=== PATIENT | female | born 2000 | race Caucasian/White ===

== ENCOUNTER 2021-08-30 13:53 | Inpatient (IN) ==
[2021-08-30 14:52] LABS: Basophils % 0.3 %; Eosinophils # 0.3 K/mcL (0.0-0.6); Eosinophils % 2.3 %; Hematocrit 43.1 % (35.3-44.9); Hemoglobin 14.5 g/dL (11.5-15.4); Immature Granulocytes % 0.2 % (0-4); Lymphocytes % 32.9 %; Mean Corpuscular HGB Conc 33.6 g/dL (31.6-35.5); Mean Corpuscular Hemoglobin 28.9 pg (28.0-33.3); Mean Platelet Volume 10.9 fL (9.4-12.4); Monocytes # 0.8 K/mcL (0.0-1.3); Monocytes % 6.4 %; Platelet Count 351 K/mcL (140-400); Red Blood Count 5.01 M/mcL (3.82-4.97); Red Cell Distribution Width 12.9 % (11.5-14.5); Segmented Neutrophils % 57.9 %
[2021-08-30 14:53] LABS: Bilirubin,Urine Negative (Negative); Blood,Urine Trace (Negative); Clarity,Urine Clear (Clear); Color,Urine Light-Yellow (Yellow); Glucose,Urine (UA) Normal (Normal); Ketones,Urine Negative (Negative); Leukocyte Esterase,Urine Negative (Negative); Mucus,Urine Few per lpf (None-Few); Nitrite,Urine Negative (Negative); PH,Urine 6.5 pH Units (5.0-8.0); Protein,Urine Negative (Neg-Trace); RBC,Urine 0-3 per hpf (0-3); Squamous Epithelial Cell,Urine Few per hpf (None-Few); Urobilinogen,Urine Normal (Normal); WBC,Urine 0-3 per hpf (0-3)
[2021-08-30 15:10] LABS: Acetaminophen < 10 mcg/mL (10-20); BUN/Creatinine Ratio 12 (6-26); Blood Urea Nitrogen 8 mg/dL (6-20); Calcium 9.8 mg/dL (8.6-10.3); Carbon Dioxide 25 mEq/L (23-29); Chloride 106 mEq/L (98-107); Chol/HDL Ratio 4.1 (0-4.9); Cholesterol 189 mg/dL (< 200); Ethanol < 10 mg/dL (Less than 10); Glucose 84 mg/dL (70-105); HDL Cholesterol 46 mg/dL (40-59); LDL Cholesterol,Calculated 108 mg/dL (< 100); Osmolality,Calculated 284 (280-300); Potassium 3.3 mEq/L (3.5-5.1); Salicylate < 2.5 mg/dL (15.0-30.0); Sodium 138 mEq/L (136-145); Triglycerides 176 mg/dL (< 150); eGFR For African Americans > 60 (> 60); eGFR For Non-African Americans > 60 (> 60)
[2021-08-30 15:50] LABS: Estimated Average Glucose 105 mg/dl; Hemoglobin A1C 5.3 %
[2021-08-30 16:08] LABS: Amphetamine Screen,Urine Negative ng/mL (Cutoff=1000); Barbiturate Screen,Urine Negative ng/mL (Cutoff=200); Benzodiazepines Screen,Urine Negative ng/mL (Cutoff=200); Cannabinoid Screen,Urine Positive ng/mL (Cutoff = 50); Cocaine Screen,Urine Negative ng/mL (Cutoff= 300); Opiate Screen,Urine Negative ng/mL (Cutoff=300); Phencyclidine Screen,Urine Negative ng/mL (Cutoff=25)
[2021-08-30 18:40] LABS: Influenza A PCR Negative (Negative); Influenza B PCR Negative (Negative); Resp. Syncytial Virus PCR Negative (Negative); SARS-CoV-2 by PCR (In House) Negative (Negative)
[2021-08-30] MEDS ORDERED: Ibuprofen 400 MG TABLET PO PRN (19:01)
[2021-08-30] MEDS ORDERED: Haloperidol Lactate 5 MG/ML VIAL IM PRN (19:01)
[2021-08-30] MEDS ORDERED: haloperidoL 5 MG TABLET PO PRN (19:01)
[2021-08-30] MEDS ORDERED: *HR* LORazepam 2 MG/ML VIAL IM PRN (19:01)
[2021-08-30] MEDS ORDERED: *HR* LORazepam 1 MG TABLET PO PRN (19:01)
[2021-08-30] MEDS: hydrOXYzine pamoate 25 MG CAPSULE PO PRN (19:20)
[2021-08-30] MEDS: traZODone 50 MG TABLET PO PRN (22:45)
[2021-08-31] MEDS ORDERED: MOM Conc 10 ML UD.LIQ PO PRN (08:00)
[2021-08-31] MEDS ORDERED: Mag Hydrox/Al Hydrox/Simeth 30 ML UDC PO PRN (08:00)
[2021-08-31] MEDS: hydrOXYzine pamoate 25 MG CAPSULE PO PRN (10:41)
[2021-08-31] MEDS: Venlafaxine XR (24 HR) 150 MG CAP.ER.24H PO SCH (13:18)
[2021-08-31] MEDS: traZODone 50 MG TABLET PO PRN (21:19)
[2021-08-31] MEDS: Nicotine 2 MG GUM BC PRN (21:21)
[2021-09-01] MEDS: Venlafaxine XR (24 HR) 150 MG CAP.ER.24H PO SCH (09:12)
[2021-09-01] MEDS: Nicotine 2 MG GUM BC PRN (09:13)
[2021-09-01 10:18] VITALS: BP 98/64; PULSE 64; TEMP 97.6; O2SAT 98
== END 2021-09-01 10:52 | disposition home or self-care (01) | DRG 885 ==
LOC: EMEROOARM 13:53 → 1ANU 18:59
PROVIDERS: ADMIT Psychiatry & Neurology Psychiatry; ATTEND Psychiatry & Neurology Psychiatry